=== PATIENT | male | born 1995 ===

== ENCOUNTER 2024-10-13 06:29 | Day surgery (SDC) | payer BC, SELFPAY | END 2024-10-13 16:54 | disposition home or self-care (01) | LOC: GI 06:29 | PROVIDERS: ATTENDING PHYSICIAN Internal Medicine Gastroenterology | DX: Z12.11 Encounter for screening for malignant neoplasm of colon (principal); Z83.719 Family history of colon polyps, unspecified; D12.4 Benign neoplasm of descending colon | CPT/HCPCS: 45385; 88305 ==